=== PATIENT | male | born 1985 | race Asian ===

== ENCOUNTER 2017-03-03 21:32 | Emergency (ER) | payer MEDICAID ==
[~2017-03-03] VITALS: Ht 188 cm; Wt 87.0 kg
[2017-03-03 22:33] VITALS: BP 124/88
[2017-03-04] MEDS ORDERED: BACITRACIN ZINC OINT UDPKT TOP ONE (05:30)
[2017-03-04] MEDS ORDERED: LIDOCAINE HCL 1% 20ML VIAL (Pyxis) INJ MC ONE (05:30)
== END 2017-03-04 07:10 | disposition home or self-care (01) ==
LOC: ER 21:32
DX: S61.210A Laceration without foreign body of right index finger without damage to nail, initial encounter (principal); W26.8XXA Contact with other sharp object(s), not elsewhere classified, initial encounter; Y93.89 Activity, other specified; Y92.89 Other specified places as the place of occurrence of the external cause; J45.909 Unspecified asthma, uncomplicated
CPT/HCPCS: 12001; 99283; J3490

== ENCOUNTER 2018-05-29 15:59 | Emergency (ER) | payer MEDICAID ==
[~2018-05-29] VITALS: Ht 188 cm; Wt 84.0 kg
[2018-05-29] MEDS ORDERED: IBUPROFEN 600MG TABLET PO ONE (17:45)
[2018-05-29] MEDS ORDERED: LIDOCAINE HCL/PF 1% 10 MG/ML 5ML VIAL IJ ONE (17:45)
[2018-05-29 18:54] VITALS: BP 127/81
== END 2018-05-29 18:54 | disposition home or self-care (01) ==
LOC: ER 16:12
DX: S60.455A Superficial foreign body of left ring finger, initial encounter (principal); F12.10 Cannabis abuse, uncomplicated; W25.XXXA Contact with sharp glass, initial encounter; Y93.89 Activity, other specified; Y92.89 Other specified places as the place of occurrence of the external cause; Y99.8 Other external cause status
CPT/HCPCS: 10120; 73140; 99284; J3490

== ENCOUNTER 2018-08-31 08:55 | Emergency (ER) | payer MEDICAID ==
[~2018-08-31] VITALS: Ht 188 cm; Wt 84.0 kg
[2018-08-31] MEDS ORDERED: PREDNISONE 20MG TABLET PO ONE (09:15)
[2018-08-31] MEDS ORDERED: FAMOTIDINE 20MG TABLET PO ONE (09:15)
[2018-08-31 09:35] VITALS: BP 134/91
== END 2018-08-31 09:42 | disposition home or self-care (01) ==
LOC: ER 08:55
DX: R21 Rash and other nonspecific skin eruption (principal)
CPT/HCPCS: 99283; J7512

== ENCOUNTER 2018-09-12 19:59 | Emergency (ER) | payer MEDICAID ==
[~2018-09-12] VITALS: Ht 188 cm; Wt 84.0 kg
[2018-09-12 20:16] VITALS: BP 134/93
== END 2018-09-13 08:10 | disposition left against medical advice (07) ==
LOC: ER 19:59
DX: Z53.21 Procedure and treatment not carried out due to patient leaving prior to being seen by health care provider (principal)

== ENCOUNTER 2021-08-12 04:53 | Emergency (ER) | payer MEDICAID ==
[~2021-08-12] VITALS: Ht 188 cm; Wt 77.0 kg
[2021-08-12 04:57] VITALS: BP 139/98
[2021-08-12] MEDS ORDERED: IBUPROFEN 600MG TABLET PO ONE (06:45)
== END 2021-08-12 06:56 | disposition left against medical advice (07) ==
LOC: ER 04:53
DX: S61.217A Laceration without foreign body of left little finger without damage to nail, initial encounter (principal); X58.XXXA Exposure to other specified factors, initial encounter; Y93.89 Activity, other specified; Y92.89 Other specified places as the place of occurrence of the external cause; Y99.8 Other external cause status; J45.909 Unspecified asthma, uncomplicated; F12.10 Cannabis abuse, uncomplicated
CPT/HCPCS: 99281